=== PATIENT | female | born 2000 | race Asian ===

== ENCOUNTER 2024-05-24 23:18 | Emergency (ER) | payer MEDICAID, SELFPAY ==
--- NOTE | ~2024-05-24 | CT_ITS ---
CLINICAL HISTORY: RLQ pain, r o appy CT abdomen and pelvis with contrast Comparison: None Findings: No consolidation or effusion. There is asymmetric enlargement of the right hepatic lobe. The liver appears normal in contour. The gallbladder and solid organs are otherwise within normal limits. No hydronephrosis or hydroureter. No bowel obstruction, pneumoperitoneum, or pneumatosis. Pelvic contents unremarkable. No bladder wall thickening appreciated. Partial visualization of a nondilated appendix at the right lower abdominal quadrant medial to the cecum. The appendix is partially obscured by adjacent loops of bowel. No acute fracture visualized. IMPRESSION: 1. No acute inflammatory process identified within the abdomen or pelvis. There is partial visualization of a nondilated appendix at the right lower abdominal quadrant. A portion of the appendix is obscured by adjacent loops of bowel. 2. Bharat's lobe versus mild hepatomegaly present. This document has been electronically signed by: Yemi Mireles MD on 05/25/2024 03:11:56
[2024-05-24 23:31] VITALS: BP 122/72; BP 132/78; PULSE 79; PULSE 80; RESP 16; TEMP 36.7; O2SAT 98; O2SAT 99; BMI 28.5
[2024-05-24 23:53] LABS: MANUAL DIFF FLAG NO
[2024-05-24 23:57] LABS: Basophils Percent Auto 0.5 % (0-2); Eosinophils Absolute Auto 0.1 X10*3/uL (0.0-0.4); Hemoglobin 12.5 g/dl (12.0-16.0); Imm Gran Abs Auto 0.03 X10*3/uL (0.00-0.03); Imm Gran Pct Auto 0.3 % (0.0-0.4); Lymphocytes Absolute Auto 2.8 X10*3/uL (1.2-4.9); Lymphocytes Percent Auto 32.1 % (20-40); Mean Corpuscular HGB Conc 33.8 g/dl (31.0-35.0); Mean Corpuscular Hemoglobin 29.3 pg (27.0-33.0); Mean Corpuscular Volume 86.9 fL (80.0-98.0); Mean Platelet Volume 9.8 fL (9.4-12.3); Monocytes Absolute Auto 0.8 X10*3/uL (0.1-1.2); Monocytes Percent Auto 8.9 % (2-11); Neutrophils Absolute Auto 5.1 x10*3/uL (2.0-8.3); Neutrophils Percent Auto 57.2 % (45-73); Platelet Count 292 X10*3/uL (160-400); Red Blood Count 4.26 X10*6/uL (4.20-5.50); Red Cell Distribution Width 13.1 % (11.0-16.0); White Blood Count 8.8 X10*3/uL (4.8-10.8)
[2024-05-25 00:09] LABS: Anion Gap 12 (12-20); Blood Urea Nitrogen 19 mg/dL (9-16); Calcium 8.9 mg/dL (8.4-10.2); Carbon Dioxide 23 mmol/L (22-29); Chloride 109 mmol/L (96-108); Creatinine Clr Calc Pharmacy 110.8; Estimated Glomerular Filt Rate > 60; Glucose Random 88 mg/dL (60-115); Lipase 24 U/L (8-78); Potassium 4.1 mmol/L (3.3-5.1); Sodium 140 mmol/L (135-145)
[2024-05-25 00:17] LABS: Appearance Urine Cloudy; Color Urine Yellow; Glucose Urine UA Negative (Negative); Leukocyte Esterase Urine Negative (Negative); Nitrite Urine Negative (Negative); Specific Gravity - Urine 1.025 (1.005-1.025); Urine Blood Negative (Negative); Urine Ketones Negative (Negative); Urine Protein Negative (Neg-Trace)
[2024-05-25 00:27] LABS: HCG Quantitative < 2 mIU/mL
--- OUTSIDE RECORDS SUMMARY | 2024-05-25 00:49 | XMS_ITS | Clinical Summary ---
Author Organization [facility] Address [address] [place] [phone] Phone Care Team Providers Care Metal Or [employer]ocker Name Role Phone Physician, Pcp Unknown Primary Care Provider Ghislaine vailable Allergies Active Allergy Reactions Criticality Noted Date Comments Terbinafine 01/08/2022 Other Reaction(s): Rash/Dermatitis Medications Medication Sig Dispensed Refills Start Date End Date Status doxycycline (ORACEA) 40 mg capsule Take 40 mg by mouth every morning. Active Surgical History Surgery Date Site/Laterality Comments LAPAROSCOPY DIAGNOSTIC / BIO PSY / ASPIRATION / LYSIS 2018 PROCEDURE: PELVIS LAPAROSCOPY, DIAGNOSTIC; COMMENT: Removal of intra-abdominal IUD Social History Tobacco Use Types Packs/Day Years Used Date Smoking Tobacco: Never Smokeless Tobacco: Never Alcohol Use Standard Drinks/Week Comments Not Currently 0 (1 standard drink = 0.6 oz pur e alcohol) Sex and Gender Information Value Date Recorded Sex Assigned at Not on file Gender Identity Not on file Sexual Orientation Not on file Job Start Date Occupation Industry Not on file Not on file Not on file Obstetrics History Last Filed Vital Signs Vital Sign Reading Time Taken Comments Blood Pressure 119/76 01/19/2022 10:19 AM EDT Pulse 76 01/19/2022 10:19 AM EDT Temperature - - Respiratory Rate - - Oxygen Saturation - - Inhaled Oxygen Concentration - - Weight 71.7 kg (158 lb) 01/19/2022 10:19 AM EDT Height - - Body Mass Index - - Plan of Treatment Upcoming Encounters Date Type Department Care Team ([facility] Contact Info) Description 05/29/2024 9:15 AM EST Consult Orthopedic Surgery - [place] [address] [phone] Ruiz Lindsay DPFlakita [address] [id number] Health Maintenance Due Date Last Done Comments Gonorrhea/Chlamydia Screening 2000 HPV Vaccines (1 - 3-dose series) 2015 DTaP,Tdap,and Td Vaccines (1 - Tdap) 2019 Hepatitis B Vaccines (1 of 3 - 19+ 3-dose series) 2019 Cervical Cancer Screening: P ap Smear 2021 Depression Screening 03/19/2022 HIV Screening 03/19/2022 Hepatitis C Screening 03/19/2022 Social Influencers of Health Screening 03/19/2022 COVID-19 Vaccine (2023-2 5 season) 2023 Influenza Vaccine (#1) 2023 HIB Vaccines Aged Out No longer eligi ble based on patient's age to complete this topic Hepatitis A Vaccines Aged Out No long er eligible based on patient's age to complete this topic IPV Vaccines Aged Out No longer eligi ble based on patient's age to complete this topic MMR Vaccines Aged Out No longer eligi ble based on patient's age to complete this topic Meningococcal ACWY Vaccine Aged Out N o longer eligible based on patient's age to complete this topic Pneumococcal Vaccine: Pediat rics (0 to 5 Years) and At-Risk Patients (6 to 64 Years) Aged Out No longer eligible b ased on patient's age to complete this topic RSV Immunization Patients Un navi 20 months Aged Out No longer eligible b ased on patient's age to complete this topic Varicella Vaccines Aged Out No longer eligible based on patient's age to complete this topic Care Teams [employer] Relationship Specialty Start Date End Date Physician, Pcp Unknown PCP - General 05/14/24
[2024-05-25] MEDS: 0.9 % Sodium Chloride 500 ML IV (01:19)
[2024-05-25] MEDS: iohexoL 350 MG/ML 100 ML INFUS..BTL 85 ML IV (01:31)
[2024-05-25] MEDS: Ketorolac Tromethamine 15 MG/ML VIAL IVPUSH (01:38)
--- NOTE | 2024-05-25 01:41 | PC.NURSE ---
#IV 20 line placed in l-outer AC. IV fluids hung and running, medicated with toradol as ordered. CT completed results pending.
[2024-05-25] MEDS: methylPREDNISolone Sod Succ 125 MG/2 ML VIAL IVPUSH (01:52)
[2024-05-25] MEDS: diphenhydrAMINE HCL 50 MG/ML VIAL 25 MG IVPUSH (01:52)
[2024-05-25] MEDS: Famotidine/PF 20 MG/2 ML VIAL IVPUSH (01:53)
--- NOTE | 2024-05-25 02:28 | ED_ITS ---
HPI - Abdominal Pain General Chief Complaint: Abdominal Pain Stated Complaint: lower r abd pain, appendicitis? -ems Time Seen by Provider: 05/24/24 23:53 Source: patient Limitations: no limitations History of Present Illness ED Provider: Jackeline Fontanez PA-C HPI narrative: 24-year-old female with a history of ovarian cysts and constipation presents with right lower quadrant pain x3 days. Patient states the pain is constant, sharp at times, nonradiating. Pain worse with walking and movement of the torso. Associated nausea. Patient states she had a bowel movement today, however it was minimal. Denies active vomiting, fever, diarrhea, dysuria. Denies history of kidney stones. Denies new vaginal discharge or bleeding, no risk for STD. Related Data Allergies Allergy/AdvReac Type Severity Reaction Status Date / Time terbinafine [From Lamisil] Allergy Mild Rash Verified 05/24/24 23:35 Review of Systems Review of Systems Yes all other systems are reviewed and are negative Constitutional: Denies fatigue and Denies fever(s) Cardiovascular: Denies chest pain and Denies dyspnea Respiratory: Denies cough and Denies dyspnea Gastrointestinal: Reports abdominal pain, Denies diarrhea, Reports nausea and Denies vomiting Genitourinary: Denies dysuria and Denies vaginal discharge Endocrine: Denies fatigue PMFSH Past Medical History Attestation statement: The following information was validated with the patient. Social History Social History Smoked in Last 30 Days: No Advance Directives: No Advance Directives Information Provided: Yes Do you have a plan to hurt others: No Plan Physical Exam ED Vital Signs: Vital Signs - 24 hr 05/24/24 23:31 05/25/24 03:05 Temperature 98.1 F 98 F Pulse Rate 80 67 Respiratory Rate 16 16 Blood Pressure 122/72 100/59 L Pulse Oximetry 98 100 Oxygen Delivery Method Room Air Room Air BMI result Body Mass Index 28.5 Const Other: Alert well-appearing Orientation/consciousness: patient oriented x3 Resp Effort & Inspection: normal respiratory effort Cardio Other: Normal peripheral perfusion GI Other: Abdomen is soft, nondistended, mild to moderate tenderness suprapubic and right lower quadrant without guarding, there was referred pain from left lower quadrant to right lower quadrant. Skin Other: Warm dry no rash Neuro General: patient oriented x3, gait normal, no focal motor deficits and CN's II- XI intact bilaterally Psych Other: Cooperative Course Reevaluation(s) Reevaluation #1: After having the contrast dye, the patient developed hives. She has no angioedema, no dysphagia no dyspnea. We will give Benadryl famotidine and Solu- Medrol. Time: 01:48 Medical Decision Making Medical Decision Making MDM Narrative: 24-year-old female with a history of ovarian cysts and constipation presents with right lower quadrant pain x3 days. Patient states the pain is constant, sharp at times, nonradiating. Pain worse with walking and movement of the torso. Associated nausea. Patient states she had a bowel movement today, however it was minimal. Denies active vomiting, fever, diarrhea, dysuria. Denies history of kidney stones. Denies new vaginal discharge or bleeding, no risk for STD. Problem: Ovarian cysts constipation History: Per patient I have considered the following differential diagnoses: Renal colic, appendicitis, torsion, TOA, UTI , ectopic Plan: Given distribution of pain in nature of symptoms, I am considering appendicitis versus potential torsion given the patient has a history of ovarian cysts. I will begin with a CT scan, she is well-appearing in his head symptoms for 3 days, I have less suspicion for torsion at this time. We will medicate with Toradol give fluid obtaining a CT scan. Thought about TOA, however she is not having risk for STD no vaginal symptoms. Deferring a pelvic exam for now. Also thought about UTI, however she is not having any symptoms. Thought about renal colic, however her pain has been focal to the right lower quadrant she has never had any flank pain, and again she is well-appearing, and does not present as 1 does going through renal colic. Screening labs and urinalysis were already obtained from triage. I have independently reviewed the following tests: Labs: No leukocytosis, not anemic, no electrolyte abnormality, urine not infected, not CT abdomen and pelvis:Findings: No consolidation or effusion. There is asymmetric enlargement of the right hepatic lobe. The liver appears normal in contour. The gallbladder and solid organs are otherwise within normal limits. No hydronephrosis or hydroureter. No bowel obstruction, pneumoperitoneum, or pneumatosis. Pelvic contents unremarkable. No bladder wall thickening appreciated. Partial visualization of a nondilated appendix at the right lower abdominal quadrant medial to the cecum. The appendix is partially obscured by adjacent loops of bowel. No acute fracture visualized. IMPRESSION: 1. No acute inflammatory process identified within the abdomen or pelvis. There is partial visualization of a nondilated appendix at the right lower abdominal quadrant. A portion of the appendix is obscured by adjacent loops of bowel. 2. Bharat's lobe versus mild hepatomegaly present. This document has been electronically signed by: Yemi Mireles MD on 05/25/2024 03:11:56 Lab Data 05/24/24 23:47 05/24/24 23:47 Labs: Lab Results 05/24/24 05/25/24 Range/Units 23:47 00:05 WBC 8.8 (4.8-10.8) X10*3/uL RBC 4.26 (4.20-5.50) X10*6/uL Hgb 12.5 (12.0-16.0) g/dl Hct 37.0 (37.0-47.0) % MCV 86.9 (80.0-98.0) fL MCH 29.3 (27.0-33.0) pg MCHC 33.8 (31.0-35.0) g/dl RDW 13.1 (11.0-16.0) % Plt Count 292 (160-400) X10*3/uL MPV 9.8 (9.4-12.3) fL Immature Gran % (Auto) 0.3 (0.0-0.4) % Neut % (Auto) 57.2 (45-73) % Lymph % (Auto) 32.1 (20-40) % [place] % (Auto) 8.9 (2-11) % Eos % (Auto) 1.0 (0-4) % Baso % (Auto) 0.5 (0-2) % Lymph # (Auto) 2.8 (1.2-4.9) X10*3/uL [place] # (Auto) 0.8 (0.1-1.2) X10*3/uL Eos # (Auto) 0.1 (0.0-0.4) X10*3/uL Baso # (Auto) 0.0 (0.0-0.2) X10*3/uL Abs Immat Gran (auto) 0.03 (0.00-0.03) X10*3/uL Absolute Neuts (auto) 5.1 (2.0-8.3) x10*3/uL Absolute Nucleated RBC 0.000 (0.0-0.012) X10*3/uL Nucleated RBC % (auto) 0.0 (0.0-0.2) /100WBC Sodium 140 (135-145) mmol/L Potassium 4.1 (3.3-5.1) mmol/L Chloride 109 H (96-108) mmol/L Carbon Dioxide 23 (22-29) mmol/L Anion Gap 12 (12-20) BUN 19 H (9-16) mg/dL Creatinine 0.72 (0.5-1.4) mg/dL Estim Creat Clear Calc 110.8 Estimated GFR > 60 Random Glucose 88 (60-115) mg/dL Calcium 8.9 (8.4-10.2) mg/dL Lipase 24 (8-78) U/L Beta HCG, Quant < 2 mIU/mL Urine Color Yellow Urine Appearance Cloudy Urine pH 7.0 (5.0-9.0) Ur Specific Sarah Ann 1.025 (1.005-1.025) Urine Protein Negative (Neg-Trace) mg/dL Urine Glucose (UA) Negative (Negative) mg/dL Urine Ketones Negative (Negative) mg/dL Urine Blood Negative (Negative) Urine Nitrite Negative (Negative) Ur Leukocyte Esterase Negative (Negative) Medications Administered Discontinued Medications Generic Name Dose Route Start Last Admin Trade Name Freq PRN Reason Stop Dose Admin Diphenhydramine HCl 25 mg 05/25/24 01:48 05/25/24 01:52 Diphenhydramine Hcl 50 Mg/Ml Vial IVPUSH 05/25/24 01:49 25 mg ONCE ONE Administration Famotidine 20 mg 05/25/24 01:48 05/25/24 01:53 Famotidine/Pf 20 Mg/2 Ml Vial IVPUSH 05/25/24 01:49 20 mg ONCE ONE Administration Sodium Chloride 500 mls @ 500 mls/hr 05/25/24 01:10 05/25/24 02:29 Ns IV 05/25/24 02:09 Infused .Q1H ONE Infusion Iohexol 85 ml 05/25/24 01:31 05/25/24 01:31 Iohexol 350 Mg/Ml 100 Ml Infus..Btl IV 05/25/24 01:32 85 ml ONCE ONE Administration Ketorolac Tromethamine 15 mg 05/25/24 01:10 05/25/24 01:38 Ketorolac Tromethamine 15 Mg/Ml Vial IVPUSH 05/25/24 01:11 15 mg ONCE ONE Administration Methylprednisolone Sodium Succinate 125 mg 05/25/24 01:48 05/25/24 01:52 Methylprednisolone Sod Succ 125 Mg/2 Ml Vial IVPUSH 05/25/24 01:49 125 mg ONCE ONE Administration Discharge Plan Discharge Clinical Impression: Constipation Patient Disposition: Home, Self-Care Instructions: Constipation (ED) Additional Instructions: All of your screening labs were normal this includes a serum test which was negative and a urinalysis which is negative for a urinary tract infection. The CT scan of the abdomen is negative for acute process, you were found to be constipated. See home care instructions. You can use [id number] Colace, this is a stool softener, 1 to 2 times a day. You should also use [id number] MiraLax, 2 to 3 times a day, until you begin having normal large volume bowel movements. Once you clear your current stool burden, you should stay on some form of a bowel regimen to help prevent constipation. Perhaps she will need the Colace daily with the MiraLax daily. Follow up with your primary care provider as needed. Print Language: Russian
--- NOTE | 2024-05-25 02:42 | PC.NURSE ---
Pt c/o itchiness and hives after CT and receiving Toradol. Proveider made aware. Order for Benadryl, Slumedrol and Famotidine given. Reassessed and patient reports feeling much better.
[2024-05-25 03:05] VITALS: BP 100/59; PULSE 67; RESP 16; TEMP 36.6; O2SAT 100
[2024-05-25 03:26] VITALS: BP 100/59; PULSE 67; RESP 16; TEMP 36.6; O2SAT 100
== END 2024-05-25 03:58 | disposition home or self-care (01) ==
PROVIDERS: Emergency Provider Emergency Medicine; PCP Student in an Organized Health Care Education/Training Program
DX: R10.31 Right lower quadrant pain (principal); R11.0 Nausea; K59.00 Constipation, unspecified; Z79.899 Other long term (current) drug therapy
CPT/HCPCS: 36415; 74177; 80048; 81003; 83690; 84702; 85025; 96374; 96375; 99284; 99285; J1200; J1885; J2919; Q9967

== ENCOUNTER → 2024-05-25 01:10 | Outpatient (BNV) | payer MEDICAID, SELFPAY | PROVIDERS: Emergency Provider Emergency Medicine; PCP Student in an Organized Health Care Education/Training Program; Visit Provider Radiology Diagnostic Radiology | DX: R10.31 Right lower quadrant pain (principal) | CPT/HCPCS: 74177 ==